=== PATIENT | female | born 1995 | race Hispanic/Latino ===

== ENCOUNTER 2019-09-08 05:45 | Inpatient (IN) ==
[2019-09-08] MEDS ORDERED: ZOFRAN IV PRN (06:14)
[2019-09-08] MEDS ORDERED: PEPCID PO ONE (06:14)
[2019-09-08] MEDS ORDERED: REGLAN PO ONE (06:14)
[2019-09-08] MEDS ORDERED: PEPCID IV PRN (06:14)
[2019-09-08] MEDS ORDERED: KEFZOL 1 GM/D5W 1 GM/50 ML IVPB IV PRN (06:14)
[2019-09-08] MEDS ORDERED: LR 500 ML IV ONE (06:14)
[2019-09-08] MEDS ORDERED: PEPCID PO PRN (06:14)
[2019-09-08] MEDS ORDERED: TYLENOL PO PRN (06:14)
[2019-09-08] MEDS ORDERED: STADOL IV PRN (06:14)
[2019-09-08] MEDS ORDERED: AMPICILLIN 2 GM in NS 100 ML IV ONE (06:14)
[2019-09-08] MEDS ORDERED: PITOCIN 30 UNITS/NS 30 UNIT/500 ML IV.SOLN IV SCH (06:15)
[2019-09-08] MEDS ORDERED: SODIUM CHLORIDE 0.9% INJ SCH (06:15)
[2019-09-08] MEDS ORDERED: LR 1,000 ML IV SCH (06:15)
--- NOTE | 2019-09-08 06:24 | H&P REVIEW ---
H&P Update Document any changes: H and P dictated Dictation # [id number]
[2019-09-08 06:53] LABS: URINE SOURCE VOIDED
[2019-09-08 07:00] LABS: BASO# 0.03 X1000 (0.0-0.2); BASO% 0.4 % (0.0-0.8); EOS# 0.26 X1000 (0.0-0.7); EOS% 3.5 % (0.0-10.0); HEMATOCRIT 39.7 % (37.0-47.0); IMM GRAN# 0.04 X1000 (0.0-0.04); IMM GRAN% 0.5 % (0.0-0.5); LYMPH# 1.59 X1000 (1.2-3.4); LYMPH% 21.2 % (20.5-51.1); MCHC 32.7 g/dL (33-37); MCV 94.5 FL (81-99); MONO# 0.51 X1000 (0.11-0.59); MONO% 6.8 % (1.7-9.3); MPV 9.8 FL (7.4-10.4); NEUT# 5.07 X1000 (1.4-6.5); NEUT% 67.6 % (42.2-75.2); PLT 259 X1000 (130-400); RDW 13.5 % (11.5-14.5)
[2019-09-08 07:01] LABS: CLARITY CLEAR (CLEAR); COLOR YELLOW; GLUCOSE URINE NEGATIVE (NEGATIVE)
[2019-09-08 07:02] LABS: BILIRUBIN URINE SMALL (NEGATIVE); BLOOD URINE NEGATIVE (NEGATIVE); KETONE URINE NEGATIVE (NEGATIVE); PH URINE 6.5; PROTEIN URINE NEGATIVE (NEGATIVE); SP GRAVITY URINE 1.011
[2019-09-08 07:03] LABS: LEUKOCYTES URINE NEGATIVE (NEGATIVE); NITRITE URINE NEGATIVE (NEGATIVE)
--- NOTE | 2019-09-08 07:05 | HISTORY AND PHYSICAL ---
HISTORY OF PRESENT ILLNESS: The patient is a 24-year-old, G 5, P 4-0-0-4, with an intrauterine at term. The patient has had no care. Reports her due date is 09/02/2019, which makes her 40 weeks and 6 days today. The patient is reporting questionable rupture of membranes. She reports she has been having pain since last evening. She came in to [facility], was transported here by ambulance to [facility]. The patient reports having mid epigastric pain. She is having contractions every 2 minutes since her arrival. No nausea, no vomiting, no diarrhea, no fever, no chills. PAST MEDICAL HISTORY: Patient reports no diabetes, no hypertension. SURGICAL HISTORY: Patient reports no previous surgeries. The patient has had no care. Not much other history is available. We are trying to get an diplomatic interpreter/translator. PHYSICAL EXAMINATION: VITAL SIGNS: Patient is afebrile. Her vital signs are stable. HEENT: Patient is normocephalic, atraumatic. CARDIOVASCULAR: S1, S2 normal. LUNGS: Clear. ABDOMEN: Uterine fundus measures 40 weeks. She has good bowel sounds. EXTREMITIES: No edema. PELVIC: Cervical examination, patient is 1, 50% effaced, and baby is still high. Adequate pelvis. OBSTETRICAL HISTORY: The patient reports that she has had 4 vaginal deliveries. No section. LABS: care panel is pending. ASSESSMENT AND PLAN: 1. Intrauterine at term, admit to labor and delivery. 2. GBS unknown. GBS protocol to be started. 3. Patient is having consistent uterine contractions approximately 1 to 2 minutes apart. Intravenous line to be started and once the intravenous is started, we will run fluids, lactated Ringer's at 125 mL per hour. Expect a vaginal delivery. We will on awake counselor and consent patient with [*] diplomatic interpreter/translator for blood products and vaginal delivery as well as section if needed. cc: Teresa Kyle MD
[2019-09-08 07:13] LABS: UR AMPHETAMINES QUAL NONE DETECTED (NONE DETECT); UR BARBITUATES QUAL NONE DETECTED (NONE DETECT); UR BENZODIAZEPIN QUAL NONE DETECTED (NONE DETECT); UR CANNABINOIDS QUAL NONE DETECTED (NONE DETECT); UR COCAINE QUAL NONE DETECTED (NONE DETECT); UR METHADONE QUAL NONE DETECTED (NONE DETECT); UR OPIATES QUAL NONE DETECTED (NONE DETECT); UR OXYCODONE QUAL NONE DETECTED (NONE DETECT); UR PCP QUAL NONE DETECTED (NONE DETECT)
[2019-09-08 07:33] LABS: RPR NON-REACTIVE (NONREACTIVE)
[2019-09-08 07:40] LABS: RUBELLA SCREEN NON IMMUNE (IMMUNE)
[2019-09-08 07:50] LABS: RAPID HIV PRESUMPTIVE NEGATIVE
[2019-09-08] MEDS ORDERED: DEPO-PROVERA IM ONE (10:00)
[2019-09-08] MEDS ORDERED: AMPICILLIN 1 GM in NS 50 ML IV SCH (10:16)
--- NOTE | 2019-09-08 10:40 | Diag Imaging Result Doc PS360 ---
EXAM: US OBS COMPLETE > 14 WKS 09/08/2019 HISTORY: No care TECHNIQUE: OB ultrasound, transabdominal scan COMMENT: The heart rate is 150 bpm and the placenta is anterior fundal. The fetus is in cephalic presentation. There is no evidence of placenta previa. The cervix is not terribly well seen but appears to be closed and not effaced. Based on multiple parameters estimated gestational age is 37 weeks three days +/- 16 days with an JESSICA of 09/26/2019. The estimated weight is 3265 g +/- 398 g. There is a three-vessel cord, four chambered heart, normal bladder, kidneys, face, orbits, stomach, spine, and diaphragm. The fetus is apparently female. Amniotic fluid volume is within normal limits. IMPRESSION: Normal viable intrauterine gestation at 37 weeks three days by ultrasound. Electronically signed by Stuart Daniel 09/08/2019 10:38 AM
[2019-09-08 16:32] LABS: AGAP 16; ALBUMIN 3.3 g/dL (3.5-5.0); ALKALINE PHOSPHATASE 323 U/L (32-104); BUN 6 mg/dL (8-22); CALCIUM 8.7 mg/dL (8.8-10.2); CHLORIDE 105 mmol/L (98-107); COSMO 275; CREATININE 0.4 mg/dL (0.5-0.9); ESTIMATED GFR > 60; GLUCOSE 69 mg/dL (70-104); GOT 46 U/L (10-30); GPT 69 U/L (10-36); POTASSIUM 3.5 mmol/L (3.5-5.1); SODIUM 140 mmol/L (136-145); TCO2 19 mmol/L (25-35); TOTAL BILIRUBIN 1.13 mg/dL (0.20-1.00); TOTAL PROTEIN 6.5 g/dL (6.3-8.3)
--- NOTE | 2019-09-08 17:37 | OB/GYN PROGRESS NOTE ---
Progress Note OB - . OB Progress Note: Laboratory Results - last 24 hr 09/08/19 09/08/19 09/08/19 06:35 06:35 06:35 WBC RBC Hgb Hct MCV MCH MCHC RDW Std Deviation Plt Count MPV Immature Gran % (Auto) Neut % (Auto) Lymph % (Auto) [place] % (Auto) Eos % (Auto) Baso % (Auto) Immature Gran # (Auto) Neut # (Auto) Lymph # (Auto) [place] # (Auto) Eos # (Auto) Baso # (Auto) Sodium Potassium Chloride Carbon Dioxide Anion Gap BUN Creatinine Estimated GFR/1.73 m2 BUN/Creatinine Ratio Glucose 89 Calculated Osmolality Calcium Total Bilirubin AST ALT Alkaline Phosphatase Total Protein Albumin Globulin Albumin/Globulin Ratio Urine Source VOIDED Urine Color YELLOW Urine Clarity CLEAR Urine pH 6.5 Ur Specific [place] 1.011 Urine Protein NEGATIVE Urine Ketones NEGATIVE Urine Blood NEGATIVE Urine Nitrite NEGATIVE Urine Bilirubin SMALL A Urine Urobilinogen 2.0 H Urine WBC NEGATIVE Urine Glucose NEGATIVE Urine Opiates Screen NONE DETECTED Ur Oxycodone Screen NONE DETECTED Ur Methadone, Qual NONE DETECTED Ur Barbiturates Screen NONE DETECTED Ur Phencyclidine Scrn NONE DETECTED Ur Amphetamines Screen NONE DETECTED U Benzodiazepines Scrn NONE DETECTED Urine Cocaine Screen NONE DETECTED U Cannabinoids Screen NONE DETECTED RPR HIV 1&2 Antibody Rapid Rubella Immunity Screen Blood Type ABO/Rh Blood Type Confirm Weak D (Du) Antibody Screen Screen RhIG Candidate? 09/08/19 09/08/19 09/08/19 06:35 06:35 06:35 WBC 7.50 RBC 4.20 Hgb 13.0 Hct 39.7 MCV 94.5 MCH 31.0 MCHC 32.7 L RDW Std Deviation 13.5 Plt Count 259 MPV 9.8 Immature Gran % (Auto) 0.5 Neut % (Auto) 67.6 Lymph % (Auto) 21.2 [place] % (Auto) 6.8 Eos % (Auto) 3.5 Baso % (Auto) 0.4 Immature Gran # (Auto) 0.04 Neut # (Auto) 5.07 Lymph # (Auto) 1.59 [place] # (Auto) 0.51 Eos # (Auto) 0.26 Baso # (Auto) 0.03 Sodium Potassium Chloride Carbon Dioxide Anion Gap BUN Creatinine Estimated GFR/1.73 m2 BUN/Creatinine Ratio Glucose Calculated Osmolality Calcium Total Bilirubin AST ALT Alkaline Phosphatase Total Protein Albumin Globulin Albumin/Globulin Ratio Urine Source Urine Color Urine Clarity Urine pH Ur Specific [place] Urine Protein Urine Ketones Urine Blood Urine Nitrite Urine Bilirubin Urine Urobilinogen Urine WBC Urine Glucose Urine Opiates Screen Ur Oxycodone Screen Ur Methadone, Qual Ur Barbiturates Screen Ur Phencyclidine Scrn Ur Amphetamines Screen U Benzodiazepines Scrn Urine Cocaine Screen U Cannabinoids Screen RPR NON-REACTIVE HIV 1&2 Antibody Rapid PRESUMPTIVE NEGATIVE Rubella Immunity Screen NON IMMUNE H Blood Type O NEGATIVE ABO/Rh Blood Type Confirm Weak D (Du) WEAK D NEGATIVE Antibody Screen NEGATIVE Screen RhIG Candidate? 09/08/19 09/08/19 09/08/19 06:35 08:19 15:53 WBC RBC Hgb Hct MCV MCH MCHC RDW Std Deviation Plt Count MPV Immature Gran % (Auto) Neut % (Auto) Lymph % (Auto) [place] % (Auto) Eos % (Auto) Baso % (Auto) Immature Gran # (Auto) Neut # (Auto) Lymph # (Auto) [place] # (Auto) Eos # (Auto) Baso # (Auto) Sodium 140 Potassium 3.5 Chloride 105 Carbon Dioxide 19 L Anion Gap 16 BUN 6 L Creatinine 0.4 L Estimated GFR/1.73 m2 > 60 BUN/Creatinine Ratio 15 Glucose 69 L Calculated Osmolality 275 Calcium 8.7 L Total Bilirubin 1.13 H AST 46 H ALT 69 H Alkaline Phosphatase 323 H Total Protein 6.5 Albumin 3.3 L Globulin 3.2 Albumin/Globulin Ratio 1.0 Urine Source Urine Color Urine Clarity Urine pH Ur Specific [place] Urine Protein Urine Ketones Urine Blood Urine Nitrite Urine Bilirubin Urine Urobilinogen Urine WBC Urine Glucose Urine Opiates Screen Ur Oxycodone Screen Ur Methadone, Qual Ur Barbiturates Screen Ur Phencyclidine Scrn Ur Amphetamines Screen U Benzodiazepines Scrn Urine Cocaine Screen U Cannabinoids Screen RPR HIV 1&2 Antibody Rapid Rubella Immunity Screen Blood Type ABO/Rh O NEGATIVE Blood Type Confirm O NEGATIVE Weak D (Du) Antibody Screen Screen NEGATIVE RhIG Candidate? YES 24 yo at 37w3d by T3 US, no care Patient admitted for suspected labor this AM. SVE upon admission /-3. Cervical exam rechecked ~6 hours later revealed no cervical change. Patient interviewed with freelance interpreter/translator phone and she complained of diffuse itching, worse on palms that occurred yesterday. She denies any currently. She states this itching occurred during previous pregnancies. Will order CMP, bile acids to assess for ICP. She is feeling ctx q 10 minutes, denies any vaginal bleeding or leaking fluid. She also states she had an ultrasound at [email or web address] that gave her a due date of 09/02. She is unsure when during she had this done. Category 1 tracing. Will continue to monitor patient.
[2019-09-08 19:00] LABS: INR 0.96; PROTIME 12.8 Seconds (11.0-16.0)
[2019-09-08 19:01] LABS: PTT 31.4 Seconds (22.3-41.8)
[2019-09-08 20:18] LABS: HIV ANTIBODY SCREEN SEE COMMENTS
[2019-09-08] MEDS: BENADRYL PO SCH (21:46)
--- NOTE | 2019-09-09 08:17 | Diag Imaging Result Doc PS360 ---
EXAM: US GB < RUQ (LIMITED) HISTORY: Elevated LFTs TECHNIQUE: Right upper quadrant ultrasound COMPARISON: None. FINDINGS: The pancreas, aorta, and inferior vena cava are obscured. No ascites in the right upper quadrant. No focal hepatic abnormality. Normal right kidney. No hydronephrosis. There are several polyps within the gallbladder. The wall was not thickened. No stones. The common bile duct measures 3 mm. IMPRESSION: Small gallbladder polyps, but no other abnormality identified. Electronically signed by Félix Butler 09/09/2019 8:15 AM
[2019-09-09] MEDS ORDERED: PEPCID IV PRN (08:56)
[2019-09-09] MEDS ORDERED: TYLENOL PO PRN (08:56)
[2019-09-09] MEDS ORDERED: STADOL IV PRN (08:56)
[2019-09-09] MEDS ORDERED: PEPCID PO PRN (08:56)
[2019-09-09] MEDS ORDERED: ZOFRAN IV PRN (08:56)
[2019-09-09] MEDS ORDERED: REGLAN PO ONE (08:56)
[2019-09-09] MEDS ORDERED: KEFZOL 1 GM/D5W 1 GM/50 ML IVPB IV PRN (08:56)
[2019-09-09] MEDS ORDERED: PEPCID PO ONE (08:56)
[2019-09-09] MEDS ORDERED: PITOCIN 30 UNITS/NS 30 UNIT/500 ML IV.SOLN IV SCH (09:00)
[2019-09-09] MEDS ORDERED: SODIUM CHLORIDE 0.9% INJ SCH (09:00)
[2019-09-09] MEDS ORDERED: XYLOCAINE-MPF 1% INJ ONE (09:00)
[2019-09-09] MEDS ORDERED: LR 1,000 ML IV SCH ×2 (09:00→09:01)
[2019-09-09] MEDS ORDERED: MINERAL OIL ONE (09:00)
[2019-09-09] MEDS ORDERED: AMPICILLIN 2 GM in NS 100 ML IV ONE (09:02)
[2019-09-09 10:49] LABS: HEPATITIS B SURFACE ANTIGEN SEE COMMENTS
[2019-09-09] MEDS ORDERED: BENADRYL PO PRN (13:10)
[2019-09-09] MEDS ORDERED: XYLOCAINE-MPF 1% INJ PRN (13:10)
[2019-09-09] MEDS ORDERED: PITOCIN IM PRN (13:10)
[2019-09-09] MEDS ORDERED: BENADRYL IV PRN (13:10)
[2019-09-09] MEDS ORDERED: HYDROXYZINE IM PRN (13:10)
[2019-09-09] MEDS ORDERED: CYTOTEC PO PRN (13:10)
[2019-09-09] MEDS ORDERED: NORCO-10 PO PRN (13:10)
[2019-09-09] MEDS ORDERED: PERI MEDS (DERMOPLAST/NUPERCAINAL/TUCKS) MISC PRN (13:10)
[2019-09-09] MEDS ORDERED: M-M-R II VACCINE SUBQ ONE (13:10)
[2019-09-09] MEDS ORDERED: ATARAX PO PRN (13:10)
[2019-09-09] MEDS ORDERED: BOOSTRIX VACCINE IM ONE (13:10)
[2019-09-09] MEDS ORDERED: MINERAL OIL TOP PRN (13:10)
[2019-09-09] MEDS ORDERED: AMBIEN PO PRN (13:10)
[2019-09-09] MEDS ORDERED: PITOCIN 20 UNITS/NS 20 UNITS/1,000 ML IV.SOLN IV SCH (13:15)
[2019-09-09] MEDS: MOTRIN PO PRN (13:34)
[2019-09-09 14:40] LABS: HEPATITIS PROFILE ACUTE SEE COMMENTS
--- NOTE | 2019-09-09 14:41 | OPERATIVE NOTE ---
PROCEDURE DATE: 09/09/2019 DELIVERY NOTE: Patient progressed to complete and pushing, had a spontaneous vaginal delivery of a female infant, 6 pounds 1 ounces with Apgars of 9 and 10 at 12:54 on 09/09/2019 over an intact perineum. Cord blood sample obtained at this time. Placenta delivered intact with 3 vessel cord. ESTIMATED BLOOD LOSS: 150 mL. ANESTHESIA: IV medication. COUNTS: All counts were correct x2. cc: MD Teresa Lopez III, MD
[2019-09-09] MEDS: BENADRYL PO SCH (20:45)
[2019-09-09] MEDS: NORCO-5 PO PRN (20:45)
[2019-09-09] MEDS: PERICOLACE PO SCH (20:45)
[2019-09-10] MEDS: PITOCIN 30 UNITS/NS 30 UNIT/500 ML IV.SOLN IV SCH ×2 (01:19→04:02)
[2019-09-10] MEDS: MOTRIN PO PRN ×3 (03:59→23:09)
[2019-09-10 04:28] LABS: BASO# 0.03 X1000 (0.0-0.2); BASO% 0.3 % (0.0-0.8); EOS# 0.28 X1000 (0.0-0.7); EOS% 3.1 % (0.0-10.0); HEMATOCRIT 36.6 % (37.0-47.0); HEMOGLOBIN 12.1 g/dL (12.0-16.0); IMM GRAN# 0.03 X1000 (0.0-0.04); IMM GRAN% 0.3 % (0.0-0.5); LYMPH# 1.86 X1000 (1.2-3.4); LYMPH% 20.8 % (20.5-51.1); MCH 31.7 PG (27-31); MCHC 33.1 g/dL (33-37); MCV 95.8 FL (81-99); MONO% 5.6 % (1.7-9.3); MPV 9.8 FL (7.4-10.4); NEUT# 6.23 X1000 (1.4-6.5); NEUT% 69.9 % (42.2-75.2); PLT 221 X1000 (130-400); RBC 3.82 XMIL (4.2-5.4); RDW 13.6 % (11.5-14.5); WBC 8.93 X1000 (4.8-10.8)
[2019-09-10 04:50] LABS: AGAP 11; ALBUMIN 2.7 g/dL (3.5-5.0); ALKALINE PHOSPHATASE 263 U/L (32-104); BUN 7 mg/dL (8-22); CALCIUM 8.3 mg/dL (8.8-10.2); CHLORIDE 107 mmol/L (98-107); COSMO 273; CREATININE 0.3 mg/dL (0.5-0.9); ESTIMATED GFR > 60; GLUCOSE 87 mg/dL (70-104); GOT 37 U/L (10-30); GPT 66 U/L (10-36); POTASSIUM 3.5 mmol/L (3.5-5.1); SODIUM 138 mmol/L (136-145); TCO2 20 mmol/L (25-35); TOTAL BILIRUBIN 0.77 mg/dL (0.20-1.00); TOTAL PROTEIN 5.3 g/dL (6.3-8.3)
--- NOTE | 2019-09-10 07:46 | OB/GYN PROGRESS NOTE ---
- Subjective Pt seen and examined. Pt is PPD#1 s/p and currently w/o complaints. Ambulating and urinating well. Tolerating regular diet. Admits to hilda varela. Pain well controlled. OB Physical Exam Vital Signs - 8 hr 09/10/19 00:12 09/10/19 04:02 Temperature 97.7 F Pulse Rate 88 87 Respiratory Rate 18 18 Blood Pressure 116/72 100/56 O2 Sat by Pulse Oximetry 96 97 - CONSTITUTIONAL General Appearance: appears well, no apparent distress - RESPIRATORY Respiratory: lungs clear, normal breath sounds - CARDIOVASCULAR Cardiovascular: regular rate, rhythm - GASTROINTESTINAL (ABDOMEN) Abdominal Exam: non tender (fundus firm below umbilicus), soft - MUSCULOSKELETAL Extremity: non-tender, no pedal edema, no calf tenderness - PSYCHIATRIC Psych/Mental Status: normal mood/affect, oriented x 3 Active Medications Generic Name Dose Route Start Last Admin Trade Name Freq PRN Reason Stop Dose Admin Acetaminophen 650 mg 09/08/19 06:14 09/08/19 21:46 Tylenol PO 650 mg Q4-6H PRN PRN Administration Headache Hydrocodone Bitart/Acetaminophen 1 each 09/09/19 13:10 09/10/19 03:59 [place]-10 PO 1 each Q3-4H PRN PRN Administration Pain (7-10 on Pain Scale) Hydrocodone Bitart/Acetaminophen 1 each 09/09/19 13:10 09/09/19 20:45 [place]-5 PO 1 each Q3-4H PRN PRN Administration Pain (1-6 on Pain Scale) Benzocaine 1 each 09/09/19 13:10 Monica Meds (Dermoplast/Nupercainal/Tucks) MISC 3-4XDAY PRN PRN episiotomy/hemorrhoids Butorphanol Tartrate 2 mg 09/09/19 08:56 09/09/19 09:38 Stadol IV 2 mg PRN PRN Administration Pain Diphenhydramine HCl 25 mg 09/08/19 21:00 09/09/19 20:45 Benadryl PO 25 mg HS ELIDIA Administration Diphenhydramine HCl 25 mg 09/09/19 13:10 Benadryl PO Q4H PRN PRN Itching Diphenhydramine HCl 12.5 mg 09/09/19 13:10 Benadryl IV Q4H PRN PRN Itching Famotidine 40 mg 09/08/19 06:14 Pepcid PO Q12H PRN PRN GI upset or indigestion Famotidine 20 mg 09/09/19 08:56 Pepcid IV Q12H PRN PRN GI upset or indigestion Hydroxyzine HCl 50 mg 09/09/19 13:10 Atarax PO Q3-4H PRN PRN Nausea Hydroxyzine HCl 50 mg 09/09/19 13:10 Hydroxyzine IM Q3-4H PRN PRN Nausea Oxytocin/Sodium Chloride 30 unit in 500 mls @ 0 mls/hr 09/08/19 06:15 Pitocin 30 Units/Ns IV .Q0M ELIDIA As Directed Oxytocin/Sodium Chloride 30 unit in 500 mls @ 0 mls/hr 09/09/19 09:00 09/09/19 09:20 Pitocin 30 Units/Ns IV 2 mls/hr .Q0M ELIDIA Administration As Directed Lactated Ringer's 1,000 mls @ 0 mls/hr 09/09/19 09:01 09/09/19 09:56 Lr IV 125 mls/hr .Q0M ELIDIA Administration As Directed Oxytocin/Sodium Chloride 20 units in 1,000 mls @ 0 mls/hr 09/09/19 13:15 Pitocin 20 Units/Ns IV .Q0M ELIDIA As Directed Oxytocin/Sodium Chloride 30 unit in 500 mls @ 500 mls/hr 09/09/19 13:15 09/10/19 04:02 Pitocin 30 Units/Ns IV Not Given .Q1H ELIDIA Ibuprofen 800 mg 09/09/19 13:10 09/10/19 03:59 Motrin PO 800 mg Q8H PRN PRN Administration cramping Lidocaine HCl 30 ml 09/09/19 13:10 Xylocaine-Mpf 1% INJ PRN PRN Perineal repair Misoprostol 800 microgm 09/09/19 13:10 Cytotec PO PRN PRN Severe bleeding Ondansetron HCl 4 mg 09/08/19 06:14 Zofran IV PRN PRN Nausea Oxytocin 20 unit 09/09/19 13:10 Pitocin IM PRN PRN Severe bleeding Senna/Docusate Sodium 1 each 09/09/19 21:00 09/09/19 20:45 Pericolace PO 1 each QHS ELIDIA Administration Sodium Chloride 5 - 10 ml 09/09/19 09:00 Sodium Chloride 0.9% INJ DIRECTED ELIDIA Zolpidem Tartrate 10 mg 09/09/19 13:10 Ambien PO HS PRN PRN Sleep Laboratory Results - last 24 hr 09/08/19 09/08/19 09/08/19 06:35 06:35 17:37 WBC RBC Hgb Hct MCV MCH MCHC RDW Std Deviation Plt Count MPV Immature Gran % (Auto) Neut % (Auto) Lymph % (Auto) [place] % (Auto) Eos % (Auto) Baso % (Auto) Immature Gran # (Auto) Neut # (Auto) Lymph # (Auto) [place] # (Auto) Eos # (Auto) Baso # (Auto) Sodium Potassium Chloride Carbon Dioxide Anion Gap BUN Creatinine Estimated GFR/1.73 m2 BUN/Creatinine Ratio Glucose Calculated Osmolality Calcium Total Bilirubin AST ALT Alkaline Phosphatase Total Protein Albumin Globulin Albumin/Globulin Ratio Ur Chlamydia/GC DNA SEE COMMENTS Hepatitis Panel SEE COMMENTS Hep Bs Antigen SEE COMMENTS 09/10/19 09/10/19 04:14 04:14 WBC 8.93 RBC 3.82 L Hgb 12.1 Hct 36.6 L MCV 95.8 MCH 31.7 H MCHC 33.1 RDW Std Deviation 13.6 Plt Count 221 MPV 9.8 Immature Gran % (Auto) 0.3 Neut % (Auto) 69.9 Lymph % (Auto) 20.8 [place] % (Auto) 5.6 Eos % (Auto) 3.1 Baso % (Auto) 0.3 Immature Gran # (Auto) 0.03 Neut # (Auto) 6.23 Lymph # (Auto) 1.86 [place] # (Auto) 0.50 Eos # (Auto) 0.28 Baso # (Auto) 0.03 Sodium 138 Potassium 3.5 Chloride 107 Carbon Dioxide 20 L Anion Gap 11 BUN 7 L Creatinine 0.3 L Estimated GFR/1.73 m2 > 60 BUN/Creatinine Ratio 23 Glucose 87 Calculated Osmolality 273 Calcium 8.3 L Total Bilirubin 0.77 AST 37 H ALT 66 H Alkaline Phosphatase 263 H Total Protein 5.3 L Albumin 2.7 L Globulin 2.6 Albumin/Globulin Ratio 1.0 Ur Chlamydia/GC DNA Hepatitis Panel Hep Bs Antigen - Assessment & Plan (1) Normal spontaneous vaginal delivery Status: Acute Plan: 24yo PPD#1 s/p -HD stable -OOB to ambulation -Reg diet -LFTs trending down -Rh neg -Continue routine PP care -Likely d/c home tomorrow
[2019-09-10] MEDS: NORCO-5 PO PRN ×2 (08:12→20:02)
[2019-09-10] MEDS: PERICOLACE PO SCH (20:02)
[2019-09-10] MEDS: BENADRYL PO SCH (23:09)
[2019-09-11] MEDS ORDERED: FLU VACCINE IM ONE (08:45)
[2019-09-11 08:54] VITALS: BP 98/54
--- NOTE | 2019-09-11 09:29 | OB/GYN PROGRESS NOTE ---
Progress Note OB - . Patient Problems: Current Active Problems Problem Status Onset Normal spontaneous vaginal delivery Acute Rh negative, antepartum Acute Rubella non-immune status, antepartum Acute Elevated LFTs Acute No care in current in third trimester Acute OB Progress Note: Vital Signs - 24 hr 09/10/19 11:44 09/10/19 19:56 09/10/19 23:47 Temperature 97.2 F L 97.3 F L 96.6 F L Pulse Rate 71 80 61 Respiratory Rate 16 18 18 Blood Pressure 95/50 112/57 114/67 O2 Sat by Pulse Oximetry 97 98 100 09/11/19 08:00 Temperature 97.1 F L Pulse Rate 62 Respiratory Rate 16 Blood Pressure 98/54 O2 Sat by Pulse Oximetry 98 Laboratory Results - last 24 hr 09/08/19 06:35 ABO/Rh O NEGATIVE Screen NEGATIVE RhIG Candidate? YES Language line for Timur'sera', Apoorva dialect used for discharge exam and instructions Radha is a pleasant 24 yo [facility] non Italian speaking admitted with no care for term labor on 09/08/2019. Radha and her spouse arrived in the [place] about 1 [place]/2 yrs ago. This was her first delivery in the [place] all others being in [facility]. She progressed to 09/09/2019 with living female , 6#1, 9/10 Apgars. Intact perineum was noted. She is ambulating, tolerating diet, voiding without difficulty. She is bottle feeding the baby and has papers for WIC. Pain is adequately controlled with Tylenol and ibuprofen. She will use [facility], [address], as her pharmacy. Admission labs revealed O neg blood type, Ab neg. She received Rhogam 09/10. She also is due to receive flu vaccine, Tdap, and MMR prior to discharge. She has been seen and released for discharge by [employer] as well. She has now two children with her and 3 still in [facility]. PE Gen: Alert, cooperative Lungs: CTA bilaterally CV: RR Abd: Soft, fundus firm 4 cm below umbilicus Calves: negative Wagner's bilaterally Assess: s/p , PPD#2 doing well Non Italian speaking - adequate communication via language line Rh neg mom; Rh + baby - Rhogam received Bottlefeeding - will get formula help via WIC No care Plan: D/C home Ibuprofen 800 mg po q 8 hours prn cramping pain, #20, 1 RF sent to pharmacy Pt now aware care available for future children. Possibility of with cholestasis discussed. She is advised to return to clinic in [address] De Paz. Return to ED for fever, unusual pain, vaginal bleeding, or trouble breathing. Denis Hassan MD
[2019-09-11] MEDS: MOTRIN PO PRN (09:30)
== END 2019-09-11 11:04 | disposition home or self-care (01) | DRG 807 ==
LOC: OPLD 05:45 → LD 05:54
PROVIDERS: ADMIT Obstetrics & Gynecology; ATTEND Obstetrics & Gynecology